=== PATIENT | female | born 1935 | race Caucasian/White ===

== ENCOUNTER → 2017-03-27 | Outpatient (CLI) | payer OTHER ==
[~2017-03-27] MED LIST: CALTRATE 600+D PO; HYZAAR 50-12.51 TAB PO; LIPITOR PO; PLAVIX PO; PRILOSEC PO; TOPROL XL PO; VIT E PO; XALATAN OP; ZOLOFT PO; [UNRECOGNIZED DRUG - OTHER]
[2017-03-27 15:04] LABS: HEMATOCRIT 31.1 % (35.0-45.0); HEMOGLOBIN 10.4 gm/dL (12.0-16.0); MEAN CELL VOLUME 87.8 FL (83-96); MEAN CORPUSCULAR HEMOGLOBIN 29.4 PG (28-34); MEAN CORPUSCULAR HGB CONC 33.5 g/dL (30-36); RED BLOOD COUNT 3.54 X10e (3.90-5.30); WHITE BLOOD COUNT 4.9 X10e3 (4.0-10.5)
[2017-03-27 15:31] LABS: BUN/CREATININE RATIO 30.71; CALCIUM SERUM 8.9 mg/dL (8.4-10.2); CREATININE SERUM 1.4 mg/dL (0.6-1.4); GLOM FILT RATE Estimated 35.4 mL/min (>60); POTASSIUM 4.1 mmol/L (3.5-5.1)
== END | disposition home or self-care (01) ==
LOC: CLAB 14:31
PROVIDERS: Urology
DX: Z01.812 Encounter for preprocedural laboratory examination (principal); N81.11 Cystocele, midline; I10 Essential (primary) hypertension
CPT/HCPCS: 36415; 80048; 85027